=== PATIENT | female | born 1960 | race Caucasian/White ===

== ENCOUNTER → 2024-02-07 11:19 | Outpatient (REF) | payer OTHER, SELFPAY | LOC: HWRAD 11:19 | PROVIDERS: ATTENDING PHYSICIAN Internal Medicine Critical Care Medicine; FAMILY PHYSICIAN Family Medicine | DX: J44.9 Chronic obstructive pulmonary disease, unspecified (principal); R06.09 Other forms of dyspnea | CPT/HCPCS: 71046 ==

== ENCOUNTER → 2024-04-27 08:51 | Outpatient (REF) | payer OTHER, SELFPAY | LOC: HWWDC 08:51 | PROVIDERS: ATTENDING PHYSICIAN Obstetrics & Gynecology Gynecology; FAMILY PHYSICIAN Family Medicine | DX: Z12.31 Encounter for screening mammogram for malignant neoplasm of breast (principal) | CPT/HCPCS: 77063; 77067 ==

== ENCOUNTER 2024-05-19 13:42 | Emergency (ER) | payer OTHER, SELFPAY ==
[2024-05-19 13:59] VITALS: BP 139/77
[2024-05-19 14:37] LABS: % Basophils 0.9 % (0-2); % Eosinophils 1.6 % (0-6); % Immature Granulocytes 0.2 % (0-0.5); % Lymphocytes 25.8 % (20.5-51.1); % Monocytes 6.9 % (1.7-9.3); % Neutrophils 64.6 % (42.2-75.2); Absolute Basophils 0.1 10^3/uL (0-0.2); Absolute Eosinophils 0.1 10^3/uL (0-0.7); Absolute Lymphocytes 1.5 10^3/uL (1.2-3.4); Absolute Monocytes 0.4 10^3/uL (0.1-0.6); Absolute Neutrophils 3.7 10^3/uL (1.4-6.5); Hematocrit 42.9 % (37.0-47.0); Hemoglobin 14.5 g/dL (12.0-16.0); Mean Corp Hgb Conc. 33.8 g/dL (33.0-37.0); Mean Corpuscular Hgb 30.3 pg (27.0-31.0); Mean Corpuscular Volume 89.6 fL (81.0-99.0); Mean Platelet Volume 8.6 fL (7.4-10.4); Nucleated Red Blood Cells % 0 %; Platelet Count 251 10^3/uL (130-400); Red Blood Cell Count 4.79 10^6/uL (4.20-5.40); White Blood Cell Count 5.8 10^3/uL (4.8-10.8)
[2024-05-19 14:49] LABS: ALT (SGPT) 15 U/L (0-35); AST (SGOT) 26 U/L (14-36); Albumin 4.5 g/dl (3.5-5.0); Alkaline Phosphatase 85 U/L (38-126); Blood Urea Nitrogen 18 mg/dl (7-17); Calcium 9.3 mg/dl (8.4-10.2); Carbon Dioxide 26 mmol/L (22-30); Chloride 101 mmol/L (98-107); Glucose 84 mg/dl (70-99); Potassium 4.4 mmol/L (3.5-5.1); Sodium 137 mmol/L (135-145); Total Bilirubin 0.4 mg/dl (0.2-1.3); Total Protein 6.9 g/dl (6.3-8.2); eGFR > 60.00
[2024-05-19 14:50] LABS: INR 1.02; PT 13.7 Sec (11.4-14.6)
[2024-05-19 14:51] LABS: APTT 30.7 Sec (23.4-35.0)
[2024-05-19 14:59] LABS: Troponin I < 0.012 ng/ml
[2024-05-19 15:42] VITALS: BP 128/74
[2024-05-19 16:00] VITALS: BP 113/67
--- NOTE | 2024-05-19 16:20 | ED.GENMED ---
History of Present Illness
General
Chief Complaint: Visual Problem
Source: patient
Exam Limitations: none
Time Seen by Provider: 05/19/24 16:04
Nursing documentation reviewed up to this point in time: agreed with
History of Present Illness
History of Present Illness:
63-year-old female with a past medical history of asthma, distant history of migraines who presents to the emergency room sent in by her primary doctor for evaluation of visual disturbance. Patient reports that over the past 3 weeks she has had 3
episodes of visual disturbance. She says that all of them have occurred while she is reading. She describes that she will have a sudden onset of 'squigglies' in her visual field�she says the initial 2 episodes were very intense and obscured her
entire left field of vision in both eyes. She says that they lasted for about 20 minutes to half hour and then resolved. She says that she subsequently had mild headache. She states that today she had the same symptoms but actually more mild than
the initial 2 episodes; she says that today's episode obscured her right visual field and was followed by very minor headache. She says that she never gets any other neurologic symptoms during these episodes�has not had any speech issues, facial
droop, weakness or numbness in her extremities. She denies any dizziness. No nausea or vomiting. She says she did have migraines in the past that presented somewhat similarly but has not had an issue for nearly 30 years. She currently is
asymptomatic. She says that today she had an appoint with her primary doctor and they discussed the symptoms and after consultation with PCP and community life director they referred her to the ER to be evaluated.
Past History
Past History
ED Past Medical History: Asthma
ED Past Surgical History: None
Social History
Tobacco: Non-smoker
Review of Systems
Review of Systems
All Other Systems: ROS reviewed and negative except as documented in HPI and ROS
Constitutional: Denies fever or chills
EENT: Denies sore throat or runny nose
Respiratory: Denies cough or trouble breathing
Cardiac: Denies chest pain or palpitations
ABD/GI: Denies abdominal pain, nausea or vomiting
: Denies flank pain
Musculoskeletal: Denies neck pain or back pain
Neurological: Reports headache and other (Visual disturbance); Denies dizzy, weakness or numbness
Phy Exam
Physical Exam
Physical Exam:
General: Awake, alert, oriented x3; no acute distress
Head: Normocephalic, atraumatic
Eyes: Conjunctiva normal, EOMI, pupils equal round and reactive to light bilaterally, visual joe intact
Throat: Airway intact, handling secretions
Neck: Trachea midline, supple without meningismus
Lungs: Breathing comfortably no distress
Heart: Regular rate
Abd: Soft, non distended, nontender
Neuro: Cranial nerves intact 2 through 12, speech fluid with no dysarthria aphasia, no limb ataxia, motor and sensory intact proximally and distally in the upper and lower extremities
Skin: no rash
Extremities: Warm well-perfused with no edema
Scores
NIH Stroke Score
Level of Consciousness: 0 - Alert
LOC Questions: 0-Answers both correctly
LOC Commands: 0-Performs both correctly
Best Horizontal Gaze: 0-Normal
Visual Joe: 0=Normal, no visual loss
Facial Palsy: 0=Normal, symmetrical
Motor - Right Arm: 0=No drift 10 seconds
Motor - Left Arm: 0=No drift 10 seconds
Motor - Right Le-No drift 5 seconds
Motor - Left Le-No drift 5 seconds
Limb Ataxia: 0-Absent
Sensation: 0-Normal
Best Language: 0-No aphasia
Dysarthria: 0-Normal
Extinction and Inattention: 0-No abnormality
Total Score:: 0
Heart Failure Risk
Heart Failure Risk Score: Not Applicable
Heart Score for Chest Pain Patients
STEMI patient?: Not applicable
Withdrawal Assessment of Alcohol
Withdrawal Assessment Completed?: Not applicable
Course
Orders/Labs/Results
Orders:
Orders
05/19/24 13:47
CT Head W/o Iv Contrast Urgent
Comment:
Reason For Exam: visual disturbance
05/19/24 14:04
ECG [Electrocardiogram (*1)] Urgent
Reason for Study: TIA/Stroke
EKG- Treatment ONCE
05/19/24 14:09
Complete Blood Count/With Diff Urgent
Comprehensive Metabolic Panel Urgent
PTT Urgent
Prothrombin Time Urgent
Troponin I Urgent
05/19/24 16:19
NEUROLOGY CONSULT Urgent
Consulting Provider: Anastacio Villanueva
Was physician already notified: Yes
Abnormal Lab Results
05/19/24
14:09
BUN 18 H mg/dl
(7-17)
05/19/24 14:09
05/19/24 14:09
Vital Signs
Initial and Last Documented VS:
Initial Vital Signs
Temp Pulse Resp BP Pulse Ox
36.3 C 76 20 139/77 99
05/19/24 13:59 05/19/24 13:59 05/19/24 13:59 05/19/24 13:59 05/19/24 13:59
Last Documented Vital Signs
Temp Pulse Resp BP Pulse Ox
36.3 C 76 20 139/77 99
05/19/24 13:59 05/19/24 13:59 05/19/24 13:59 05/19/24 13:59 05/19/24 13:59
MDM/Problems Addressed
Differential Diagnosis Includes:
Migraine with aura, brain mass, TIA
MDM/Problems Addressed:
63-year-old female presents for evaluation after third episode of transient visual disturbance over the past few weeks. She describes 'squiggly lines' that obscure peripheral vision typically last for 20 to 30 minutes and resolve and are followed
by mild headache. Similar to migraine she has had in the past. She is currently asymptomatic. Vital signs normal. Physical exam as above. She had labs sent in triage including a CBC and a CMP which were unremarkable. She had an EKG which
showed sinus rhythm. CT head was negative for any acute pathology. Case discussed with neurology, suspect likely migraine with aura. No clear indication for admission to the hospital at this point in time, stable for discharge will follow-up as
an outpatient with neurology. Patient comfortable with this plan. Neurology recommended prescription for rizatriptan for future symptoms. All questions answered.
*Radiology
Radiology exam reviewed: radiology read reviewed
*Pulse Oximetry
Patient hypoxic: no
*EKG
Interpreted by ED Provider?: Yes
Heart Rate: 75
Rate: normal
Rhythm: sinus
[place]: normal axis
Interval: normal interval
QRS Pattern: normal QRS
Ischemia: non-specific ST changes
*Critical Care Note
Total Time (30-74mins, 75-104mins- exclusive of procedures): Not Applicable
Data Reviewed
Source: patient and records
Patient Management
Discussion with other providers: Advertising Vice President (Discussed with neurologist)
ED Attending Note
-
Portions of this chart may have been created with voice recognition software.� Occasional wrong word or��sound alike� substitutions may have occurred due to the inherent limitations of voice recognition software.
Discharge Plan
Departure
Patient Disposition: Home (Routine Discharge)
Date of Disposition: 05/19/24
Time of Disposition: 16:30
Patient with high blood pressure during this ER visit?: No
Discharge Problem:
Visual disturbance
Instructions: Migraines (DC)
Prescriptions:
New
rizatriptan 10 mg tablet,disintegrating
10 mg PO ONCE PRN (Reason: migraine headache) Qty: 10 0RF
Referrals:
Delia Braden MD [Non-Admitting Privileges] - Call in 1-3 days for appt (Neurology)
Activity Restrictions/Additional Instructions:
Thank you for visiting the Emergency Department at [facility].
1. Please schedule a follow up appointment as directed. Call first thing tomorrow morning to make an appointment.
2. If indicated, please take your medications as instructed and indicated on discharge paperwork.
3. If any of your symptoms do not improve, or persist, or become more severe within 6-12 hours, please return to the emergency department for further care.
4. Please return to the emergency department if you develop a headache, neck pain/stiffness, fever greater than 100.4F, chest pain, shortness of breath, persistent nausea, vomiting, slurred speech, difficulty walking, numbness/tingling, weakness,
signs of infection or any other symptoms that are worrisome to you.
Please call [phone] if you have any questions.
Interventions
Interventions:
*Risk Screen - Suicide Last Done: 05/19/24 13:59
Discharge Date and Time
Print Language: YORUBA
== END 2024-05-19 16:49 | disposition home or self-care (01) ==
LOC: EMR 13:42
PROVIDERS: Emergency Medicine; CONSULT PHYSICIAN Psychiatry & Neurology Neurology; EMERGENCY PHYSICIAN Emergency Medicine; FAMILY PHYSICIAN Family Medicine
DX: H53.9 Unspecified visual disturbance (principal)
CPT/HCPCS: 99285; 70450; 80053; 84484; 85025; 85610; 85730; 93005